=== PATIENT | male | born 1965 | race Caucasian/White ===

== ENCOUNTER 2024-11-09 13:33 | Emergency (ER) | payer BC, SELFPAY ==
[2024-11-09 13:36] VITALS: BP 143/81
[2024-11-09 13:54] LABS: % Basophils 0.6 % (0-2); % Eosinophils 1.6 % (0-6); % Immature Granulocytes 0.3 % (0-0.5); % Monocytes 6.7 % (1.7-9.3); % Neutrophils 77.8 % (42.2-75.2); Absolute Basophils 0.1 10^3/uL (0-0.2); Absolute Eosinophils 0.2 10^3/uL (0-0.7); Absolute Lymphocytes 1.4 10^3/uL (1.2-3.4); Absolute Monocytes 0.7 10^3/uL (0.1-0.6); Absolute Neutrophils 8.2 10^3/uL (1.4-6.5); Hematocrit 41.4 % (39.0-52.0); Mean Corp Hgb Conc. 33.8 g/dL (33.0-37.0); Mean Corpuscular Volume 85.9 fL (80.0-94.0); Mean Platelet Volume 9.5 fL (7.4-10.4); Nucleated Red Blood Cells % 0 % (-); Platelet Count 227 10^3/uL (130-400); Red Blood Cell Count 4.82 10^6/uL (4.70-6.10); Red Cell Dist. Width 12.7 % (11.5-14.5); White Blood Cell Count 10.5 10^3/uL (4.8-10.8)
[2024-11-09 14:09] LABS: Lactic Acid 1.7 mmol/L (0.7-2.0)
[2024-11-09 14:21] LABS: ALT (SGPT) 26 U/L (0-50); AST (SGOT) 21 U/L (17-59); Albumin 4.5 g/dl (3.5-5.0); Alkaline Phosphatase 94 U/L (38-126); Blood Urea Nitrogen 17 mg/dl (9-20); Calcium 9.8 mg/dl (8.4-10.2); Carbon Dioxide 32 mmol/L (22-30); Chloride 99 mmol/L (98-107); Glucose 96 mg/dl (70-99); Sodium 139 mmol/L (135-145); Total Bilirubin 1.4 mg/dl (0.2-1.3); Total Protein 6.8 g/dl (6.3-8.2); eGFR > 60.00
--- NOTE | 2024-11-09 17:08 | ED.GENMED ---
History of Present Illness
General
Chief Complaint: Abdominal Symptoms
Time Seen by Provider: 11/09/24 14:26
History of Present Illness
History of Present Illness:
58-year-old male presents evaluation of left lower abdominal pain and left low back pain occurring intermittently for the past 2 to 3 days. Went to urgent care today where he was noted to have visible hematuria and thus sent to the emergency
department. Denies any fevers, chills, sweats, nausea, vomiting, or diarrhea. Pain is minimal at this time. No dysuria.
Past History
Past History
ED Past Medical History: Arrthythmia (Atrial fibrillation status post ablation), HTN, Hypercholesterolemia and Other (Sleep apnea)
ED Past Surgical History: Cardiac (Ablation for A. fib)
Social History
Tobacco: Former smoker
Alcohol: Occasional
Drug: None
Personal:
Review of Systems
Review of Systems
Allergies reviewed?: Yes
All Other Systems: ROS reviewed and negative except as documented in HPI and ROS
Phy Exam
Physical Exam
Physical Exam:
GEN: Well appearing, NAD, WDWN
HEENT: Oral mucosa moist, no scleral icterus
Cardiac: Regular rate
Lung: No respiratory distress, no tachypnea
Abdomen: Soft, nontender
MSK: No gross deformity or injuries
Skin: Good color, no pallor or jaundice, no rashes
Neuro: AO x3, moves all extremities freely
Psych: Calm, cooperative
Course
Orders/Labs/Results
Orders:
Orders
11/09/24 13:45
Complete Blood Count/With Diff Urgent
Comprehensive Metabolic Panel Urgent
Lactic Acid Urgent
11/09/24 14:41
CT Abd/pel Without Iv Or Oral Urgent
Comment:
Reason For Exam: L flank pain
11/09/24 15:11
Urine Culture Urgent
FABIANO Source: Urine
Specimen Description:
Obtained by: [facility]
Date Specimen was Collected: 11/09/24
Time Specimen was Collected: 15:08
Abnormal Lab Results
11/09/24
13:45
Absolute Neuts (auto) 8.2 H 10^3/uL
(1.4-6.5)
Absolute Monos (auto) 0.7 H 10^3/uL
(0.1-0.6)
Neutrophils % 77.8 H %
(42.2-75.2)
Lymphocytes % 13.0 L %
(20.5-51.1)
Carbon Dioxide 32 H mmol/L
(22-30)
Total Bilirubin 1.4 H mg/dl
(0.2-1.3)
11/09/24 13:45
11/09/24 13:45
Vital Signs
Initial and Last Documented VS:
Initial Vital Signs
Temp Pulse Resp BP Pulse Ox
98.4 F 89 18 143/81 99
11/09/24 13:36 11/09/24 13:36 11/09/24 13:36 11/09/24 13:36 11/09/24 13:36
Last Documented Vital Signs
Temp Pulse Resp BP Pulse Ox
98.4 F 86 18 138/83 99
11/09/24 13:36 11/09/24 17:18 11/09/24 17:18 11/09/24 17:18 11/09/24 17:18
MDM/Problems Addressed
MDM/Problems Addressed:
4 mm distal left ureteral stone identified, patient is quite comfortable at this time. Will recommend NSAIDs with Flomax and copious fluids with expectant management. Urinalysis results today are consistent with UTI however will send culture for
completeness, no indication for antibiotics. Patient made aware of the large right kidney stone. May require urology follow-up as an outpatient
*Critical Care Note
Total Time (30-74mins, 75-104mins- exclusive of procedures): Not Applicable
ED Attending Note
-
Portions of this chart may have been created with voice recognition software.� Occasional wrong word or��sound alike� substitutions may have occurred due to the inherent limitations of voice recognition software.
Discharge Plan
Departure
Patient Disposition: Home (Routine Discharge)
Date of Disposition: 11/09/24
Time of Disposition: 17:10
Patient with high blood pressure during this ER visit?: No
Discharge Problem:
Ureterolithiasis
Instructions: Kidney stones in adults - ED discharge instructions
Prescriptions:
New
tamsulosin [Flomax] 0.4 mg capsule
0.4 mg PO HS Qty: 10 0RF
No Action
levothyroxine 125 MCG tablet
125 mcg PO DAILY
vitamins-lipotropics 1 TAB tablet
2 tab PO TID
coenzyme Q10-vit E-vit E mixed 1 EACH capsule
1 ea PO DAILY
metoprolol succinate 25 MG tablet extended release 24 hr
25 mg PO BID
lisinopril-hydrochlorothiazide 1 EACH tablet
1 tab PO DAILY
rosuvastatin 10 MG tablet
10 mg PO QPM
zolpidem [Ambien CR] 6.25 MG tablet,ext release multiphase
6.25 mg PO HS
amoxicillin-pot clavulanate 1 TABLET tablet
1 tab PO Q12 Qty: 14 0RF
Referrals:
Gage Bliss DO [Family Provider] -
Austin Lucas MD [Active] -
Activity Restrictions/Additional Instructions:
Take 600mg ibuprofen every 6-8 hours for pain control
Interventions
Interventions:
*Risk Screen - Suicide Last Done: 11/09/24 13:36
*General Assessment Last Done: 11/09/24 13:36
*Neglect/Abuse Screening Last Done: 11/09/24 13:36
*ED COVID-19 Vaccine History Last Done: 11/09/24 15:39
*Nursing Disposition Last Done: 11/09/24 17:18
[facility]-Pjxwowcxvk Assessment Last Done: 11/09/24 14:37
Discharge Date and Time
Discharge Date/Time: 11/09/24 17:23
Print Language: BULGARIAN
[2024-11-09 17:18] VITALS: BP 138/83
== END 2024-11-09 17:23 | disposition home or self-care (01) ==
LOC: EMR 13:33
PROVIDERS: Emergency Medicine; EMERGENCY PHYSICIAN Emergency Medicine; FAMILY PHYSICIAN Family Medicine
DX: N13.2 Hydronephrosis with renal and ureteral calculous obstruction (principal); Z87.891 Personal history of nicotine dependence
CPT/HCPCS: 99284; 74176; 80053; 83605; 85025; 87086

== ENCOUNTER 2025-02-11 06:38 | Day surgery (SDC) | payer BC, SELFPAY ==
[2025-02-05 09:16] VITALS: BMI 33.4
--- NOTE | 2025-02-05 14:02 | PTCARENOTE ---
Abnormal EKG on 02/05/25. Dr. Wolfe aware. No intervention required.
[2025-02-11] VITALS (13 sets, daily range): BP systolic 130–162; BP diastolic 69–96; BMI 33.4
[2025-02-11] MEDS: NORMOSOL-R/PLASMALYTE-A 1000 IV (07:59)
[2025-02-11] MEDS: Pyridium 200 MG PO (10:43)
== END 2025-02-11 13:10 | disposition home or self-care (01) ==
LOC: SDS 06:38
PROVIDERS: ATTENDING PHYSICIAN Urology; FAMILY PHYSICIAN Family Medicine
DX: N20.0 Calculus of kidney (principal)
CPT/HCPCS: 52356; 36415; 74018; 76000; 82365; 93005; C1769; C2617